=== PATIENT | male | born 1970 | race Caucasian/White ===

== ENCOUNTER 2022-05-05 07:40 | Outpatient (CLI) | payer BC ==
[2022-05-05] MEDS ORDERED: Iopamidol 370 76% 100 ML VIAL ONE (09:09)
== END 2022-05-05 07:41 | disposition home or self-care (01) ==
LOC: CT 07:40
PROVIDERS: ATTEND Internal Medicine Cardiovascular Disease
DX: I35.1 Nonrheumatic aortic (valve) insufficiency (principal)
CPT/HCPCS: 71275